=== PATIENT | female | born 1955 | race Caucasian/White ===

== ENCOUNTER 2020-08-27 11:47 | Outpatient (CLI) | payer MEDICARE, SELFPAY ==
--- NOTE | 2020-08-27 | DI.RAD_ITS ---
EXAM: XR THORACIC SPINE COMPLETE CLINICAL HISTORY: THORACIC BACK PAIN,M54.6 TECHNIQUE: COMPARISON: No exams were available for comparison FINDINGS: Three views were obtained. There is a mild biconvex thoracolumbar scoliosis. There are moderate hyp ertrophic vertebral endplate changes particularly in the thoracolumbar junction region. Mild narrowi ng of intervertebral disc spaces at multiple levels noted. No gross compression fracture identified. 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 RADIATION DOSE DELIVERED: Total DLP
== END 2020-08-27 12:07 ==
PROVIDERS: PCP Family Medicine; Visit Provider Family Medicine
DX: M47.814 Spondylosis without myelopathy or radiculopathy, thoracic region (principal); M41.84 Other forms of scoliosis, thoracic region
CPT/HCPCS: 72072

== ENCOUNTER 2020-10-06 01:00 | Outpatient (CLI) | payer MEDICARE, SELFPAY ==
--- NOTE | 2020-10-06 | DI.DEXA_ITS ---
EXAM: XR DEXA BONE DENSITY W/WO JANESSA CLINICAL HISTORY: SCREENING FOR OSTEOPORIS IN POSTMENOPAUSAL WOMAN, Z78.0 TECHNIQUE: COMPARISON: No exams were available for comparison FINDINGS: Lateral Spine Image: Unremarkable. No compression deformities identified. Left hip: Total T-Score: -1.9 Total Z-Score: -0.6 T- and Z-scores: Findings are consistent with osteopenia. Lumbar Spine: Total T-Score: -2.8 Total Z-Score: -1.0 T- and Z-scores: Findings are consistent with osteoporosis and high fracture risk. IMPRESSION: Osteoporosis in the lumbar spine.
== END 2020-10-06 01:20 ==
PROVIDERS: PCP Family Medicine; Visit Provider Family Medicine
DX: M47.816 Spondylosis without myelopathy or radiculopathy, lumbar region (principal); Z78.0 Asymptomatic menopausal state
CPT/HCPCS: 77080

== ENCOUNTER 2020-10-20 21:14 | Outpatient (REF) | payer MEDICARE, SELFPAY ==
[2020-10-22 14:03] LABS: COVID-19 RT-PCR UVMMC Result Negative (Negative)
== END 2020-10-20 21:15 | disposition home or self-care (01) ==
LOC: NCHCN 21:14
PROVIDERS: PCP Family Medicine; Visit Provider Family Medicine
DX: Z20.822 Contact with and (suspected) exposure to COVID-19 (principal)
CPT/HCPCS: U0003

== ENCOUNTER 2020-12-21 11:28 | Outpatient (REF) | payer MEDICARE, SELFPAY ==
--- NOTE | 2020-12-21 09:00 | PAPFT_PTH ---
PATIENT: Danelle Beach LOC: [facility]#:[id number] AGE/SX: 65/F ROOM: RE12/21/[address]: Katie Alexis : 1955 BED: DIS: 12/21/2020 SPEC #: [id number] RECD: 12/21/20 12:56 STATUS: KATHY REEva #: [id number] MAGDY: 12/21/20 09:[address]: Katie Alexis DEPT: [facility] Cytology RECD BY: Irasema Higuera Tissues: 1 - CX/ENDOCX FOR PAP SMEARS Procedures: PAP THIN PREP/[facility] Screening HPV DNA PROBE Comments: [id number]
== END 2020-12-21 11:29 | disposition home or self-care (01) ==
LOC: NCHCN 11:28
PROVIDERS: PCP Family Medicine; Visit Provider Family Medicine
DX: Z12.4 Encounter for screening for malignant neoplasm of cervix (principal); Z01.419 Encounter for gynecological examination (general) (routine) without abnormal findings; Z11.51 Encounter for screening for human papillomavirus (HPV); R87.810 Cervical high risk human papillomavirus (HPV) DNA test positive
CPT/HCPCS: 88142; 87624

== ENCOUNTER 2021-01-07 11:37 | Outpatient (REF) | payer MEDICARE, SELFPAY ==
--- NOTE | 2021-01-07 10:30 | SKI_PTH ---
PATIENT: Danelle Beach LOC: [facility] U#:[id number] AGE/SX: 65/F ROOM: RE01/07/[address]: Katie Alexis : 1955 BED: DIS: 01/07/2021 SPEC #: [id number] RECD: 01/08/21 12:35 STATUS: KATHY CASTELLON #: [id number] MAGDY: 01/07/21 10:[address]: Katie Alexis DEPT: Surgical Specimen RECD BY: Irasema Higuera Tissues: 1 - SKIN BIOPSY(SHAVE/PUNCH) 2 - SKIN BIOPSY(SHAVE/PUNCH) Procedures: SKIN LEVEL 4 Comments: [id number]
== END 2021-01-07 11:38 | disposition home or self-care (01) ==
LOC: NCHCN 11:37
PROVIDERS: PCP Family Medicine; Visit Provider Family Medicine
DX: L82.1 Other seborrheic keratosis (principal)
CPT/HCPCS: 88305

== ENCOUNTER 2021-09-08 15:34 | Outpatient (CLI) | payer MEDICARE, SELFPAY ==
--- NOTE | 2021-09-08 | DI.RAD_ITS ---
Exam(s) XR WRIST RT COMPL NAVICULAR EXAM: XR WRIST RT COMPL NAVICULAR CLINICAL HISTORY: RT WRIST PAIN, M25.531, S/P SLIP AND FALL YESTERDAY. TECHNIQUE: 2D digital imaging was performed of the right wrist. Four views were obtained. Scaphoid, PA, lateral and oblique views were obtained. COMPARISON: No exams were available for comparison FINDINGS: BONES: No acute fracture is present. No bony destructive lesion is seen. There is a less than 1 mm de nsity at the lateral aspect of the trapezium. There also appears to be a 2 mm osseous density on the dorsum of the wrist seen on the lateral view. JOINTS: The carpal bones are normally aligned. Mild degenerative changes of the 1st CMC joint. SOFT TISSUE: Normal. IMPRESSION: 1. On the lateral view there appears to be a 2 mm density at the dorsal aspect of the wrist. This ma y represent a small avulsed fracture usually the triquetral bone. 2. Very tiny density adjacent to the 1st CMC joint. This may represent a tiny avulsion fracture. 3. Please correlate with patient's site of pain. DATA REPOSITORY: RADIATION DOSE DELIVERED:
== END 2021-09-08 15:54 ==
PROVIDERS: PCP Family Medicine; Visit Provider Physician Assistant Medical
DX: M25.531 Pain in right wrist (principal); R93.7 Abnormal findings on diagnostic imaging of other parts of musculoskeletal system; W19.XXXA Unspecified fall, initial encounter
CPT/HCPCS: 73110

== ENCOUNTER → 2021-09-23 09:31 | Outpatient (BNVA) | payer MEDICARE, SELFPAY | PROVIDERS: PCP Family Medicine; Referring Provider Family Medicine | DX: S62.111A Displaced fracture of triquetrum [cuneiform] bone, right wrist, initial encounter for closed fracture (principal); W00.0XXA Fall on same level due to ice and snow, initial encounter | CPT/HCPCS: 99203 ==

== ENCOUNTER → 2023-11-17 00:16 | Outpatient (CLI) | payer MEDICARE, SELFPAY ==
--- NOTE | 2023-11-17 | DI.DEXA_ITS ---
Exam(s) XR DEXA BONE DENSITY W/WO JANESSA EXAM: XR DEXA BONE DENSITY W/WO JANESSA CLINICAL HISTORY: OSTEOPOROSIS, M81.0 TECHNIQUE: COMPARISON: CR XR DEXA BONE DENSITY W/WO JANESSA from 10/06/2020 FINDINGS: Lateral Spine Image: Unremarkable. No compression deformities identified. Left hip: Total T-Score: -2.1. This compares to -1.9 on the prior Total Z-Score: Examination. 0.7 T- and Z-scores: Findings are consistent with osteopenia. Lumbar Spine: Total T-Score: -2.6. This compares to -2.8 on the prior examination. Total Z-Score: -0.5 T- and Z-scores: Findings are consistent with osteoporosis. IMPRESSION: Osteoporosis in the lumbar spine.
--- NOTE | 2023-11-17 08:25 | DI.MAMMO_ITS ---
Exam(s) MAMMO SCREENING EXAM: MAMMO SCREENING CLINICAL HISTORY: SCREENING, Z12.31 TECHNIQUE: Bilateral full field digital CC and MLO mammographic images were obtained with 3D tomosyn thesis and utilizing computer aided detection (CAD). COMPARISON: Available for comparison. FINDINGS: Masses/Architectural Distortion: There appears to be a new 6 mm nodule in the retroareolar region of the right breast on the craniocaudad view. No areas of architectural distortion are seen. Microcalcifications: No suspicious pleomorphic-type are seen. Skin Thickening/Nipple Retraction: None. IMPRESSION: 1. New 6 mm retroareolar right breast nodule. 2. Spot compression views requested for further evaluation. Limited right breast ultrasound may be i ndicated at that time. BI-RADS Category 0 - Assessment Incomplete: Need additional imaging evaluation Breast Density - Category B - Scattered areas of fibroglandular density Breast density category C or D implies that the patient has dense breast tissue. Dense breast tissue is very common and is not abnormal but dense breast tissue can make it harder to find cancer on a ma mmogram. Also, dense breast tissue may increase their breast cancer risk. This information about the result of the mammogram report was provided to the patient to raise their awareness. Use this report when you speak with the patient about their risks for breast cancer, which includes their family hist ory. At that time, you may recommend for more screening tests (Ultrasound or MRI) as they might be us eful based on their risk. A negative radiographic report should not delay biopsy if a dominant or clinically suspicious mass is present. Up to ten percent of cancers are not identified on mammography. A negative report may reinforce clinical impression. Adenosis and dense breasts may obscure an underlying neoplasm. False positive reports average 6 to 10%. Patient will receive a letter notifying them of these results.
== END ==
PROVIDERS: PCP Family Medicine; Visit Provider Family Medicine
DX: M81.0 Age-related osteoporosis without current pathological fracture (principal); Z12.31 Encounter for screening mammogram for malignant neoplasm of breast; Z13.820 Encounter for screening for osteoporosis
CPT/HCPCS: 77063; 77067; 77080

== ENCOUNTER 2024-09-30 12:18 | Outpatient (REF) | payer MEDICARE, SELFPAY ==
[2024-09-30 15:08] LABS: HCT 39.2 % (36.0-46.0); HGB 12.8 g/dL (11.2-15.7); MCH 30.7 pg (27.0-33.0); MCHC 32.7 % (32.0-36.0); MCV 94 fL (80-95); MPV 10.8 fL (8.0-11.0); Platelet Count 297 10^3/uL (130-400); RBC 4.17 10^6/uL (3.93-5.22); RDW 13.2 % (11.7-14.6); RDW-SD 45.7 fL; WBC 6.26 10^3/uL (4.4-10.8)
[2024-09-30 15:46] LABS: ALT 22 U/L (14-59); AST 20 U/L (15-37); Alkaline Phosphatase 77 U/L (46-116); Anion Gap 8.7 mmol/L (3-11); BUN 15 mg/dL (7-18); Bilirubin, Total 0.47 mg/dL (0.2-1.0); CO2 29.3 mmol/L (21.0-32.0); CREATININE 0.9 mg/dL (0.55-1.02); Calculated LDL 166 mg/dL (<100); Chloride 103 mmol/L (98-107); Cholesterol 274 mg/dL (<200); Estimated GFR 68.77 (mL/min/1.73m2); Glucose 96 mg/dL (74-106); HDL Cholesterol 92 mg/dL (40-60); Potassium 5.4 mmol/L (3.5-5.1); Sodium 141 mmol/L (136-145); Total Protein 7.6 g/dL (6.4-8.2); Triglyceride 83 mg/dL (<150); Vitamin D 25 Total 37.7 ng/mL (30-100)
== END 2024-09-30 12:19 | disposition home or self-care (01) ==
LOC: NCHCN 12:18
PROVIDERS: PCP Family Medicine; Visit Provider Family Medicine
DX: E55.9 Vitamin D deficiency, unspecified
CPT/HCPCS: 80053; 80061; 82306; 85027